=== PATIENT | male | born 1955 | race Caucasian/White ===

== ENCOUNTER → 2017-04-02 | Outpatient (CLI) | payer OTHER ==
[~2017-04-02] MED LIST: LEVO112T2 PO; LEVO50TA PO; URSO PO; ocean spray NAS
== END | disposition home or self-care (01) ==
LOC: CFH 09:52
PROVIDERS: ATTEND Family Medicine
DX: M65.871 Other synovitis and tenosynovitis, right ankle and foot (principal); R60.0 Localized edema

== ENCOUNTER → 2019-05-03 | Outpatient (CLI) | payer BC | END | disposition home or self-care (01) | LOC: CFH 09:11 | PROVIDERS: ATTEND Nurse Practitioner Family | DX: K42.9 Umbilical hernia without obstruction or gangrene (principal) | CPT/HCPCS: 76705 ==